=== PATIENT | male | born 1970 | race Two or more races ===

== ENCOUNTER 2017-02-13 21:23 | Emergency (ER) | payer OTHER ==
[2017-02-14] MEDS ORDERED: PREDNISONE 20 MG TABLET ONE (00:52)
--- NOTE | 2017-02-14 09:03 | RAD ---
FOOT LEFT 3 VIEWS HISTORY: Foot pain, greatest at the first ray metatarsal-phalangeal joint. COMPARISONS: None. FINDINGS: 3 views of the left foot demonstrate normal bony mineralization. There is a sclerotic focus likely reflecting a bone island involving the proximal phalanx of the second ray. No fracture or periosteal reaction is seen. The alignment is appropriate. The joint spaces are well-maintained. No focal soft tissue abnormalities are seen. IMPRESSION: 1. A likely bone island involving the proximal phalanx of the second ray. 2. Otherwise negative views of the left foot.
== END 2017-02-14 01:19 | disposition home or self-care (01) ==
LOC: ED 21:23
DX: M10.072 Idiopathic gout, left ankle and foot (principal)
CPT/HCPCS: 73630; 99283 ×2; J7512